=== PATIENT | female | born 1950 | race Caucasian/White ===

== ENCOUNTER 2019-01-03 09:20 | Inpatient (IN) ==
[2019-01-03] MEDS ORDERED: NS 1,000 ML IV ONE ×2 (09:54→10:54)
[2019-01-03] MEDS ORDERED: HUMULIN R IV ONE ×2 (09:54→11:04)
--- NOTE | 2019-01-03 09:58 | PROVIDER DOCUMENTATION ---
HPI-General Adult - General Chief Complaint: High Blood Sugar Stated Complaint: HIGH BLOOD SUGAR Time Seen by Provider: 01/03/19 09:39 Source: patient Allergies/Adverse Reactions: Patient Allergies Allergy/AdvReac Type Severity Reaction Status Date / Time adhesive tape Allergy Unknown Unknown Verified 03/09/17 13:52 aripiprazole [From Abilify] Allergy Unknown Unknown Verified 03/09/17 13:52 benztropine [From Cogentin] Allergy Unknown Unknown Verified 03/09/17 13:52 divalproex sodium Allergy Unknown Unknown Verified 03/09/17 13:52 [From Depakote] erythromycin base Allergy Unknown Unknown Verified 03/09/17 13:52 lithium Allergy Unknown Unknown Verified 03/09/17 13:52 morphine Allergy Unknown Unknown Verified 03/09/17 13:52 oxytetracycline Allergy Unknown Unknown Verified 03/09/17 13:52 [From Terramycin] promethazine [From Phenergan] Allergy Unknown Unknown Verified 03/09/17 13:52 pseudoephedrine Allergy Unknown Unknown Verified 03/09/17 13:52 [From Sudafed] Sulfa (Sulfonamide Allergy Unknown Unknown Verified 03/09/17 13:52 Antibiotics) talc Allergy Unknown Unknown Verified 03/09/17 13:52 triprolidine [From Actifed] Allergy Unknown Unknown Verified 03/09/17 13:52 venlafaxine [From Effexor] Allergy Unknown Unknown Verified 03/09/17 13:52 diclofenac [From Voltaren] Allergy Unknown Verified 12/22/18 14:35 ibuprofen Allergy Unknown Verified 12/22/18 14:35 oxycodone [From OxyContin] Allergy Unknown Verified 12/22/18 14:35 rizatriptan [From Maxalt] Allergy Unknown Verified 12/22/18 14:35 heather pacheco moisturizer Allergy Unknown Uncoded 01/03/19 11:20 seasoning for corned beef Allergy ANAPHYLAXIS Uncoded 01/03/19 11:20 Home Medications: Home Medication List Medication Instructions Recorded Confirmed Last Taken Type Aspirin 81 mg PO BID 03/09/17 10/17/17 1 Day Ago History ~10/16/17 Cholecalciferol (Vitamin D3) 4,000 unit PO QHS 03/09/17 10/17/17 10/16/17 History [Vitamin D3] Clomipramine HCl [Anafranil] 75 mg PO BID 03/09/17 10/17/17 10/16/17 History Estrogen/Methyltestosterone 1 each PO DAILY 03/09/17 10/17/17 10/16/17 History [Estratest] Levomilnacipran HCl [Fetzima] 120 mg PO DAILY 03/09/17 10/17/17 10/16/17 History Levothyroxine [Synthroid] 110 microgm PO DAILY 03/09/17 10/17/17 10/16/17 History Lubiprostone [Amitiza] 24 microgm PO BID 03/09/17 10/17/17 10/16/17 History Propranolol [Inderal] 20 mg PO TID 03/09/17 10/17/17 10/16/17 History Quetiapine Fumarate [Seroquel] 50 mg PO QAM 03/09/17 10/17/17 10/16/17 History Quetiapine Fumarate [Seroquel] 100 mg PO QHS 03/09/17 10/17/17 10/16/17 History Triamterene/Hydrochlorothiazid 1 each PO DAILY 03/09/17 10/17/17 10/16/17 History [Triamterene-Hctz 75-50 mg Tab] Vitamin B Complex [B Complex] 1 each PO DAILY 03/09/17 10/17/17 10/16/17 History Epinephrine Auto Injector [Epipen] 0.3 mg IM DIRECTED PRN PRN #1 01/02/19 Unknown Rx [email or web address] Prednisone 40 mg PO DAILY #8 tab 01/02/19 Unknown Rx - History of Present Illness -Gen Adult Nature of Presenting Problems: Pt. is 68 yof that presents with c/o elevated Blood sugar. Pt. is DM and last night received a steroid shot for an allergic reaction. She reports today her meter is reading >500. Pt. reports increased thirst and urination but denies ever being in DKA. Location of Pain/Injury: reports: none. denies: head, face, mouth, neck, chest, upper extremity, hand(s), abdomen, back, pelvis, genitalia, lower extremity, feet, upper body, lower body, generalized, other Pain Radiation: reports: no radiation. denies: arm(s), back, buttocks, chest, epigastric, feet, groin, jaw, flank (L), legs (lower), LLQ, LUQ, neck, periumbilical, flank (R), RLQ, RUQ, shoulder(s), scapula, scrotal, sternal notch, suprapubic, legs (upper), urethral, vaginal, other Quality of Pain: reports: none. denies: aching, indigestion, throbbing Severity: reports: moderate. denies: mild, severe Onset/Duration: reports: unsure, gradual Timing: reports: still present. denies: improving, intermittent, getting worse Context/Activities at Onset: reports: none. denies: light activity, moderate a ctivity, vigorous activity, recent emotional stress, recent physical stress, recent trauma history, possible bad food, cold exposure, eating, out of country travel, rest, sleep, sexual activity, other Modifying Factors: improves with: nothing Associated Symptoms: reports: denies symptoms. denies: anxiety, arm pain, back/neck pain, chest pain, constipation, cough, diaphoresis, diarrhea, dizziness, EENT symptoms, fatigue, fever/chills, genitourinary problems, headaches, heartburn, joint pain, loss of appetite, malaise, muscle aches, sinus congestion/drainage, nausea, rash, seizure, shortness of breath, sensory/motor loss, pain with inspiration, swelling/mass in abdomen, syncope, vomiting, weakness, trouble walking, other Similar Symptoms Previously?: Yes Recently seen or treated by another doctor?: Yes - Diabetes Related Context Context: reports: high blood sugar Review of Systems - Adult - REVIEW OF SYSTEMS - ADULT Constitutional: reports: no symptoms reported Eyes: reports: no symptoms reported Ears, Nose, Mouth & Throat: reports: no symptoms reported Cardiovascular: reports: no symptoms reported Respiratory: reports: no symptoms reported Gastrointestinal: reports: no symptoms reported Genitourinary: reports: no symptoms reported Musculoskeletal: reports: no symptoms reported Integumentary: reports: no symptoms reported Neurological: reports: no symptoms reported Psychiatric: reports: no symptoms reported Endocrine: reports: see HPI, increased thirst, polyuria. denies: change in skin pigment, cold intolerance, heat intolerance Past History - Adult - PAST MEDICAL HISTORY-ADULT Review of Records: reports: Old Records Reviewed, Nursing Assessment Review, Medications Reviewed, Social history reviewed & non-contributory. Major Childhood Illnesses: reports: denies history Cardiovascular: reports: denies history Respiratory: reports: sleep apnea Gastrointestinal: reports: denies history Obstetrical/Gynecological: reports: denies history Genitourinary: reports: denies history Musculoskeletal: reports: denies history Neurological: reports: denies history Psychiatric: reports: denies history Endocrine/Immune: reports: denies history Other Conditions: reports: denies history - PRIOR SURGERIES/PROCEDURES Surgical/Procedure History: reports: reviewed, not pertinent - IMMUNIZATION STATUS Childhood Immunizations: See Nurse Assessment Flu Vaccine: See Nurse Assessment - FAMILY HISTORY Family History: reviewed, not pertinent - SOCIAL HISTORY Smoking: denies Physical Exam-General - PHYSICAL EXAM-ADULT Initial Vital Signs Reviewed: Yes - CONSTITUTIONAL General Appearance: alert, mild distress, thin. negative: anxious, obtunded, combative - EYES Eyes: PERRL/EOMI, pink conjunctivae - HEAD, EARS, NOSE, MOUTH & THROAT HENMT: normocephalic/atraumatic, moist mucous membranes - NECK Neck: non-tender, full range of motion, supple, normal inspection - RESPIRATORY Respiratory: lungs clear, normal breath sounds - CARDIOVASCULAR Cardiovascular: normal peripheral pulses, regular rate, rhythm, no edema - GASTROINTESTINAL (ABDOMEN) Abdominal Exam: normal bowel sounds, non tender, soft - LYMPHATIC Lymphatic: no adenopathy - MUSCULOSKELETAL Back Exam: normal inspection, no CVA tenderness, no vertebral tenderness Extremity: normal range of motion, non-tender, normal gait, normal inspection Peripheral Pulses: radial (R): 2+, radial (L): 2+ - SKIN Integumentary: normal color, normal turgor, warm/dry - NEUROLOGIC Neurologic: grossly normal, no motor/sensory deficits - PSYCHIATRIC Psych/Mental Status: normal mood/affect, normal thought content, normal thought process, oriented x 3. negative: anxious, paranoid, tearful Progress - PLAN OF CARE/RESULTS Progress/Plan/Lab Results: Vital Signs - 8 hr 01/03/19 09:25 Temperature 97.8 F Pulse Rate 77 Respiratory Rate 18 Blood Pressure 178/80 O2 Sat by Pulse Oximetry 96 Laboratory Results - last 24 hr 01/03/19 09:42 POC Glucose 500 H Orders Category Date Time Status Saline Loc NOW Care 01/03/19 09:54 Ordered ABG [RESP] Stat Lab 01/03/19 09:54 Ordered ACETONE SERUM [CHEM] Stat Lab 01/03/19 09:54 Uncollected CBC WITH ELECTRONIC DIFF [HEME] Stat Lab 01/03/19 09:54 Uncollected COMPREHENSIVE METABOLIC PANEL [CHEM] Stat Lab 01/03/19 09:54 Uncollected TSH Stat Lab 01/03/19 09:54 Uncollected URINALYSIS W/POSS RFLX CULT [URINALYSIS] Stat Lab 01/03/19 09:54 Uncollected Insulin Human Regular [Humulin R] Med 01/03/19 09:54 Once 10 unit IV NOW ONE Ns 1000 ml IV Bolus X1 Med 01/03/19 09:54 Ordered 0.9% Sodium Chloride Inj [Ns] 1,000 ml IV 999 mls/hr Result Diagrams: 01/03/19 10:00 01/03/19 10:00 - EKG 1 Time of EKG reading by physician:: 11:23 EKG Read and Signed by:: Mauricio Galindo EKG Interpretation (*Must complete 3 of following elements*): Abnormal Rate: 75 Rhythm: Sinus with prolonged QT - CONSULTS/PCP/HOSPITALIST Notification #1 *Consult/PCP/Hospitalist*: Charity Mahajan Time Discussed: 11:30 Reason/Comments: Admission Consult Disposition: Will see in ED, Admit Departure - Departure Date of Disposition Decision: 01/03/19 Time of Disposition Decision: 11:06 DIAGNOSIS: Hyperthyroidism, Hyperglycemia Acute renal failure Qualifiers: Acute renal failure type: unspecified Qualified Code(s): N17.9 - Acute kidney failure, unspecified Disposition: ADMITTED INPATIENT 09 Certified Medical Emergency: Emergent Condition: Stable Referrals and Follow-Ups: Bronson Gregorio MD [Primary Care Provider] - - Critical Care Note This patient required my direct & personal management of CC.: No Attestation - Physician/ BRISA Attestation Patient care was provided by Advanced Practice Provider:: Yes Advanced Practice Provider:: Jazmyne Bills Advanced Practice Provider documentation review:: The Mid-level provider documentation, treatment plan and medical decision making was reviewed by the physician who agrees with all treatment and medical decision making by the MLP. The physician spent face to face time with patient:: No Advanced Practice Provider documentation review:: Supervising physician onsite and consulted in the evaluation and care of this patient. The physician did not have a face to face encounter with the patient.
[2019-01-03 10:22] LABS: URINE SOURCE CLEAN CATCH
[2019-01-03 10:24] LABS: HEMATOCRIT 33.4 % (37.0-47.0); HEMOGLOBIN 10.6 g/dL (12.0-16.0); LYMPH# 0.74 X1000 (1.2-3.4); LYMPH% 14.1 % (20.5-51.1); MCHC 31.7 g/dL (33-37); MCV 91.5 FL (81-99); MONO# 0.08 X1000 (0.11-0.59); MONO% 1.5 % (1.7-9.3); MPV 9.7 FL (7.4-10.4); NEUT# 4.42 X1000 (1.4-6.5); NEUT% 84.4 % (42.2-75.2); PLT 254 X1000 (130-400); RBC 3.65 XMIL (4.2-5.4); RDW 12.7 % (11.5-14.5); WBC 5.24 X1000 (4.8-10.8)
[2019-01-03 10:25] LABS: BILIRUBIN URINE NEGATIVE (NEGATIVE); BLOOD URINE SMALL (NEGATIVE); COLOR STRAW; GLUCOSE URINE >1000 mg/dL (NEGATIVE); KETONE URINE NEGATIVE (NEGATIVE); LEUKOCYTES URINE NEGATIVE (NEGATIVE); NITRITE URINE NEGATIVE (NEGATIVE); PH URINE 6.5; PROTEIN URINE 70 mg/dL (NEGATIVE); SP GRAVITY URINE 1.018; TURBIDITY URINE CLEAR (CLEAR); UROBILINOGEN URINE NORMAL (NORMAL)
[2019-01-03 10:26] LABS: UR EPITHELIAL CELLS <10 /HPF (<10); URINE BACTERIA 1+ /HPF; URINE RBC <10 /HPF (<10); URINE WBC <10 /HPF (<10)
[2019-01-03 10:29] LABS: ALLEN TEST YES; BE -0.1 mmoll (-3.0-3.0); BLOOD TYPE ARTERIAL; HCO3-(ACT) 24.8 mmoll (20.0-26.0); METHB 0.6 % (0.0-1.5); MODALITY ROOM AIR; O2(CT) 14.5 mL/dL (15.0-23.0); O2HB 95.9 % (95.0-99.0); PCO2(98.6) 44 mmHg (35-45); PO2(98.6) 81 mmHg (60-100); SAMPLE BLOOD; SAO2 97.6 % (95.0-100.0); THB 10.7 g/dL (11.5-17.4); pH(98.6) 7.37 (7.35-7.45)
[2019-01-03 10:35] LABS: ACETONE SERUM NEGATIVE (NEGATIVE)
[2019-01-03 10:45] LABS: AGAP 14; ALB/GLOB RATIO 1.1; ALKALINE PHOSPHATASE 93 U/L (32-104); BUN 41 mg/dL (8-22); CALCIUM 8.9 mg/dL (8.8-10.2); CHLORIDE 90 mmol/L (98-107); COSMO 295; CREATININE 3.5 mg/dL (0.5-0.9); ESTIMATED GFR 13; GLUCOSE 599 mg/dL (70-104); GOT 11 U/L (10-30); GPT 19 U/L (10-36); POTASSIUM 4.5 mmol/L (3.5-5.1); SODIUM 128 mmol/L (136-145); TCO2 24 mmol/L (25-35); TOTAL BILIRUBIN 0.21 mg/dL (0.20-1.00); TOTAL PROTEIN 7.5 g/dL (6.3-8.3)
[2019-01-03] MEDS ORDERED: ROBAXIN PO PRN (12:30)
[2019-01-03] MEDS ORDERED: ZOFRAN IV PRN (12:30)
[2019-01-03] MEDS ORDERED: FLEXERIL PO PRN (12:30)
[2019-01-03] MEDS ORDERED: EPIPEN IM PRN (12:30)
[2019-01-03] MEDS ORDERED: TYLENOL PO PRN (12:30)
[2019-01-03] MEDS ORDERED: MIRALAX PO PRN (12:30)
[2019-01-03] MEDS ORDERED: BENADRYL PO PRN (12:30)
[2019-01-03] MEDS ORDERED: MICRO-K PO PRN (12:30)
[2019-01-03] MEDS: HUMALOG SUBQ PRN ×2 (12:44→21:30)
--- NOTE | 2019-01-03 12:52 | Diag Imaging Result Doc PS360 ---
EXAM: CHEST-PORTABLE INDICATION: admit TECHNIQUE: One view COMPARISON: None. FINDINGS: There is mild elevation of the right hemidiaphragm. The lungs are grossly clear. There is no discrete pleural fluid collection or pneumothorax. The cardiomediastinal silhouette and central vasculature are grossly unremarkable accounting for magnification from AP technique. IMPRESSION: No evidence of acute pathology by plain radiograph. Electronically signed by Gaurang Calderon 01/03/2019 12:50 PM
--- NOTE | 2019-01-03 14:03 | HISTORY AND PHYSICAL ---
PRIMARY CARE PHYSICIAN: Dr. Bronson Gregorio. CHIEF COMPLAINT: Of an increased blood sugar after she had to use her EpiPen yesterday for an allergic reaction after eating at a restaurant. Also notes increased thirst and increased urination, has also noted weight loss over the past month. HISTORY OF PRESENTING ILLNESS: This is a 68-year-old female who presents to [facility] with complaints of an increased blood sugar, increased thirst, increased urination. States yesterday she had to give herself a shot with her EpiPen because she was eating at a restaurant and had an allergic reaction to some type of seasoning that they used in their food. She has also noted some weight loss over the past month. When she arrived to the emergency room her blood sugar was 599. Sodium was 128, BUN was 41 with a creatinine of 3.5, her anion gap was 14, her TSH was 0.05, her acetone level was negative, her ABG was all within normal limits so she will be admitted for further evaluation and treatment. PAST MEDICAL HISTORY: Of sleep apnea, diabetes type 2, hypothyroidism, constipation, hypertension. PAST SURGICAL HISTORY: Of a tonsillectomy, a hysterectomy, bladder repair after it was nicked during the hysterectomy, a back surgery and appendectomy. FAMILY HISTORY: Her mom and sister both have diabetes. SOCIAL HISTORY: She currently lives with family. Denies any tobacco, alcohol or illicit drug use. ALLERGIES: To adhesive tape, Abilify, Cogentin, Depakote, erythromycin, lithium, morphine, tetracycline, promethazine, pseudoephedrine, sulfa, talc, triprolidine, venlafaxine, diclofenac, ibuprofen, oxycodone, Maxalt, Paty K moisturizer and seasoning for corned beef. HOME MEDICATIONS: She takes aspirin 81 mg p.o. b.i.d., vitamin D3 4000 units p.o. at bedtime, Anafranil 75 mg p.o. b.i.d., Flexeril 10 mg p.o. p.r.n., Benadryl 25 mg p.o. p.r.n., Trulicity 0.75 mg injection will be held, EpiPen IM as directed p.r.n. , Aimovig autoinjector 1 dose IM every month will be held, Estratest 1 p.o. daily, Lasix 40 mg p.o. p.r.n. will be held, Fetzima 120 mg p.o. daily, Synthroid 110 mcg p.o. daily will be held, Amitiza 24 mcg p.o. b.i.d., Robaxin 750 mg p.o. q.8 hours p.r.n., Zofran 4 mg sublingually p.r.n. will be held, MiraLAX 17 g p.o. p.r.n., potassium 10 mEq p.o. p.r.n., Mirapex 0.5 mg p.o. t.i.d., prednisone 40 mg p.o. daily, Inderal 20 mg p.o. t.i.d., Seroquel 50 mg p.o. q.a.m. and 100 mg p.o. at bedtime, triamterene/hydrochlorothiazide 75/50 p.o. daily will be held and vitamin B complex 1 p.o. daily. LABORATORY DATA: Showed a white blood cell count of 5.24, hemoglobin 10.6, hematocrit 33.4, platelets 254,00.0 ABG with a pH of 7.37, pCO2 of 44, PO2 81, bicarb 24.8 and this was on room air. Sodium 128, potassium 4.5, chloride 90, CO2 24, BUN of 41, creatinine 3.5, glucose was 599, TSH of 0.05. Urinalysis was negative, acetone level was negative. Chest x-ray is pending. REVIEW OF SYSTEMS: She denied any fever, chills, blurred vision, dizziness. She has had increased thirst, increased urination, is very anxious, has noted weight loss over the past month. Denied any chest pain, coughing, shortness of breath denied any abdominal pain, constipation, diarrhea, burning or hurting with urination. PHYSICAL EXAMINATION: Temperature 97.8 degrees, pulse 77, respirations 18, blood pressure 178/80, saturating 96% on room air. GENERAL: This is a 68-year-old female who is lying in the bed and answers questions appropriately. HEENT: Normocephalic, atraumatic. Normal ENT inspection. Oropharynx and nares are clear. Pupils are equal, round, reactive to light, accommodation. Extraocular movements are intact. NECK: Normal inspection, normal range of motion. LUNGS: Clear to auscultation bilaterally with equal lung expansion and chest wall movement. HEART: With regular rate and rhythm. No murmurs, rubs, or gallops. ABDOMEN: Soft, nontender, nondistended. Bowel sounds are present x4 quadrants. MUSCULOSKELETAL: She has 5/5 strength x4 extremities. NEUROLOGICAL: The cranial nerves 2-12 appear grossly intact. ASSESSMENT: 1. Hyperosmolar nonketotic diabetes type 2. 2. Acute kidney injury. 3. Hyperthyroidism in a hypothyroid patient secondary to Synthroid use. PLAN: She will be admitted to the PVC unit, placed on telemetry. Will do fingerstick blood sugars q.2 hours x2 then q.4 hours, place on moderate sliding scale, place on normal saline at 125 mL an hour. Continue home medications as previously identified. Will continue to hold any diuretics at this time and will hold her Trulicity. We will recheck a CBC, BMP in the a.m. Apply SCDs for DVT prophylaxis and further orders after seen by attending. Dictated by SARA Alexis for Norm Mahajan MD cc: MD Norm Dill MD [facility]
[2019-01-03] MEDS: INDERAL PO SCH ×2 (14:10→17:26)
[2019-01-03] MEDS: MIRAPEX PO SCH ×2 (14:10→17:26)
[2019-01-03] MEDS: NS 1,000 ML IV SCH (14:12)
--- NOTE | 2019-01-03 17:43 | EKG Report ---
Test Performed on : 01/03/2019 11:21:52 AM Test Reason : admit Blood Pressure : / mmHG Vent. Rate : 075 BPM Atrial Rate : 075 BPM P-R Int : 184 ms QRS Dur : 092 ms QT Int : 454 ms P-R-T Axes : 025 010 019 degrees QTc Int : 506 ms Normal sinus rhythm. Minimal voltage criteria for LVH, may be normal variant Prolonged QT Abnormal ECG No previous ECGs available Unconfirmed Result
[2019-01-03] MEDS: SEROQUEL PO SCH (21:27)
[2019-01-03] MEDS: ASPIRIN PO SCH (21:27)
[2019-01-03] MEDS: AMITIZA PO SCH (21:27)
[2019-01-03] MEDS: VITAMIN D PO SCH (21:28)
[2019-01-03] MEDS: ANAFRANIL PO SCH (21:28)
[2019-01-04] MEDS: HUMALOG SUBQ PRN (00:52)
[2019-01-04] MEDS: NS 1,000 ML IV SCH ×3 (00:52→21:19)
[2019-01-04] MEDS: SYNTHROID PO SCH (06:17)
[2019-01-04 07:22] LABS: BASO# 0.01 X1000 (0.0-0.2); BASO% 0.1 % (0.0-0.8); EOS# 0.03 X1000 (0.0-0.7); EOS% 0.4 % (0.0-10.0); HEMATOCRIT 30.1 % (37.0-47.0); HEMOGLOBIN 9.5 g/dL (12.0-16.0); LYMPH# 1.71 X1000 (1.2-3.4); MCH 28.9 PG (27-31); MCHC 31.6 g/dL (33-37); MCV 91.5 FL (81-99); MONO# 0.48 X1000 (0.11-0.59); MONO% 5.6 % (1.7-9.3); MPV 8.8 FL (7.4-10.4); NEUT# 6.32 X1000 (1.4-6.5); NEUT% 73.9 % (42.2-75.2); PLT 247 X1000 (130-400); RBC 3.29 XMIL (4.2-5.4); RDW 12.7 % (11.5-14.5); WBC 8.55 X1000 (4.8-10.8)
[2019-01-04 08:07] LABS: CREATININE 2.9 mg/dL (0.5-0.9); POTASSIUM 3.9 mmol/L (3.5-5.1)
[2019-01-04] MEDS: HUMALOG SUBQ SCH ×5 (08:59→21:29)
[2019-01-04] MEDS ORDERED: ESTRATEST PO SCH (09:00)
[2019-01-04] MEDS ORDERED: PREDNISONE PO SCH (09:00)
[2019-01-04] MEDS: PATIENT'S OWN MED PO SCH (09:02)
[2019-01-04] MEDS: SEROQUEL PO SCH ×2 (09:02→21:20)
[2019-01-04] MEDS: ASPIRIN PO SCH ×2 (09:03→21:20)
[2019-01-04] MEDS: AMITIZA PO SCH ×2 (09:04→21:20)
[2019-01-04] MEDS: NEPHROCAPS PO SCH (09:04)
[2019-01-04] MEDS: ANAFRANIL PO SCH ×2 (09:05→21:19)
[2019-01-04] MEDS: MIRAPEX PO SCH ×3 (09:06→16:37)
[2019-01-04] MEDS: INDERAL PO SCH ×3 (09:06→16:37)
[2019-01-04] MEDS ORDERED: LANTUS INSULIN SUBQ SCH (13:45)
[2019-01-04] MEDS ORDERED: NON-FORMULARY MED (Dulaglutide [Trulicity] 1 DOSE) SUBQ ONE (15:45)
--- NOTE | 2019-01-04 17:04 | PROGRESS NOTE ---
DATE: 01/04/2019 SUBJECTIVE: The patient has no major complaints. Her blood sugars are much improved. She looks much brighter today. OBJECTIVE: Vital signs: Blood pressure 126/52, heart rate 72, respiratory rate of 28, temperature was 99 degrees. Cardiovascular: Regular rate and rhythm. Pulmonary: Bilateral breath sounds. Clear to auscultation. GI: Soft, nontender, nondistended. Bowel sounds are positive. LABORATORY DATA: White count is 8, hemoglobin and hematocrit 9 and 30, platelets of 247,000. BUN and creatinine are down to 35 and 2.9. Her baseline, I think, kidney function is fairly normal. Creatinine last one is 2018 and was 1.1, so I think she has had an acute injury. But her glucoses, the nurse illustrated to me some glucoses today that I do not have access to that are normal, like 70s and 80s. PROBLEM LIST: 1. Acute kidney injury, may be multifactorial. She is on Lasix and a Hyzaar combination, thiazide diuretics, so multiple things that are potentially nephrotoxic. I think Dr. Gregorio though was preparing for a Nephrology referral already. The patient has concerns about needing a renal biopsy prior to discharge which with her kidney function improving, I think is unlikely. Her urine electrolytes would suggest normal or nonspecific really, unfortunately, but we did get all of the tests that I requested. In any case, I will get a Nephrology opinion. I do not think the patient needs a biopsy at this time. I am not quite sure why the patient is on prednisone. I guess just because of an allergic reaction. I am going to hold her prednisone though. 2. Hyperglycemia. Again, not very well controlled. Sugars are better. I was going to reinstitute Lantus based on her previous sugars but today they are better. I am going to resume her Trulicity which apparently is safe to use in this setting and we will continue to follow. Her GFR is still low but I am hopeful that this will turn around. 3. Disposition. I anticipate if kidney function is below 2 and sugars are stable she should be able to go home tomorrow or the next day, pending, of course, Nephrology evaluation. cc: Norm Mahajan MD
[2019-01-04 18:53] LABS: UR CREAT RANDOM 20.6 mg/dL (11-20)
[2019-01-04] MEDS: VITAMIN D PO SCH (21:20)
[2019-01-05] MEDS: HUMALOG SUBQ SCH ×3 (01:38→08:08)
[2019-01-05] MEDS: NS 1,000 ML IV SCH (05:09)
[2019-01-05] MEDS: SYNTHROID PO SCH (06:26)
[2019-01-05 07:29] LABS: EOS# 0.01 X1000 (0.0-0.7); EOS% 0.1 % (0.0-10.0); HEMATOCRIT 28.6 % (37.0-47.0); HEMOGLOBIN 9.2 g/dL (12.0-16.0); LYMPH# 1.82 X1000 (1.2-3.4); LYMPH% 23.7 % (20.5-51.1); MCH 29.4 PG (27-31); MCHC 32.2 g/dL (33-37); MCV 91.4 FL (81-99); MONO# 0.56 X1000 (0.11-0.59); MONO% 7.3 % (1.7-9.3); MPV 9.6 FL (7.4-10.4); NEUT# 5.29 X1000 (1.4-6.5); NEUT% 68.9 % (42.2-75.2); PLT 248 X1000 (130-400); RBC 3.13 XMIL (4.2-5.4); RDW 12.9 % (11.5-14.5); WBC 7.68 X1000 (4.8-10.8)
[2019-01-05 07:37] LABS: CALCIUM 8.1 mg/dL (8.8-10.2); CREATININE 2.8 mg/dL (0.5-0.9); POTASSIUM 3.7 mmol/L (3.5-5.1)
[2019-01-05] MEDS: ANAFRANIL PO SCH ×2 (08:13→21:47)
[2019-01-05] MEDS: NEPHROCAPS PO SCH (08:14)
[2019-01-05] MEDS: SEROQUEL PO SCH ×2 (08:14→21:48)
[2019-01-05] MEDS: AMITIZA PO SCH ×2 (08:14→21:47)
[2019-01-05] MEDS: INDERAL PO SCH ×3 (08:15→16:33)
[2019-01-05] MEDS: MIRAPEX PO SCH ×3 (08:15→16:33)
[2019-01-05] MEDS: ASPIRIN PO SCH ×2 (08:15→21:48)
[2019-01-05] MEDS ORDERED: NS 1,000 ML IV SCH (10:15)
[2019-01-05] MEDS: PATIENT'S OWN MED PO SCH (12:34)
[2019-01-05] MEDS ORDERED: NORVASC PO SCH (14:00)
--- NOTE | 2019-01-05 14:16 | PROGRESS NOTE ---
DATE: 01/05/2019 SUBJECTIVE: The patient has no complaints. She looks well. OBJECTIVE: Blood pressure is not controlled or at least was not this morning, 160/65, heart rate 68, respiratory rate 18, temperature 97.8 degrees, 94% on room air.Cardiovascular: Regular rate and rhythm. Pulmonary: Bilateral breath sounds clear to auscultation. GI: Soft, nontender, nondistended. Bowel sounds are positive. LABORATORY DATA: Her white count is 7, hemoglobin and hematocrit 9 and 28, platelets 248,000, creatinine of 2.8. Per Dr. Gregorio, her creatinine recently was right above 3. PROBLEM LIST: 1. Acute on chronic renal failure. Her ultrasound shows chronic renal disease. I think this may be her new baseline. Nephrology has been consulted. I do not see a note today. I think they did stop IV fluids. It is unclear at this point if she has a nephrotic range proteinuria. Her GFR suggests that she has stage IV disease, so we are going to continue to monitor unless there is any other improvement, but I anticipate discharge soon. She has had workup including renal ultrasound and urine electrolytes. I suspect that she has hypertensive and diabetic nephropathy, but we will see. 2. Hypertension, which is not well controlled. In fact, she is on propranolol, but I am not entirely convinced that she takes that for blood pressure. She is on Lasix as needed and she is supposed to be on Hyzaar. These things have been held because of her kidney dysfunction. I am going to start her on Norvasc at low dose and we will see how she does. cc: Norm Mahajan MD
--- NOTE | 2019-01-05 14:24 | NEPHROLOGY CONSULTATION ---
DATE: 01/05/2019 REASON FOR ADMISSION: Possible allergic reaction after eating at a restaurant and using EpiPen x2. REASON FOR CONSULTATION: Acute kidney injury. CONSULTING PHYSICIAN: Dr. Mahajan. HISTORY OF PRESENT ILLNESS: Ms García is a 68-year-old white female who is followed by Dr. Bronson Gregorio. States that she has a past medical history of diabetes type 2, hypertension, hypothyroidism, and sleep apnea. She states that she has never been told she has had renal disease. She states that she was eating dinner on Friday afternoon at a restaurant with her granddaughter, had taken a bite of the soup after being reassured that there were no spices in it. The patient felt her throat constrict. She had an EpiPen in her purse. She proceeded to give herself an injection. The patient did not feel any better after 5 to 10 minutes, went out to her car, gave herself another EpiPen injection. Due to not feeling well, her granddaughter drove her to [facility] Emergency Department. During that initial evaluation, she had increased blood sugar, her blood pressure was elevated, she had complaints of increased thirst, increased urination. States that she has had weight loss in the last month. Denied chest pain. Denied any dizziness. During evaluation, it was found that her blood sugar in the emergency room was 599 with a sodium of 128. Her BUN was 41 and creatinine of 3.5. TSH was 0.05. Anion gap of 14. Acetone was negative. ABGs were actually within normal limits. The patient was admitted for further monitoring and evaluation. Noted that she had a normal creatinine of 1.1 in June 2017. No complaints of swelling. No complaints of chest pain. No increased work of breathing. She has improved in her throat constriction. No nausea, vomiting. No diarrhea. No fever, chills. PAST MEDICAL HISTORY: Sleep apnea, diabetes mellitus type 2, hypertension, hypothyroidism, constipation. She does have chronic neck pain that she wears a neck brace for sleeping. The patient has diabetic neuropathy to her feet. PAST SURGICAL HISTORY: Tonsillectomy, hysterectomy, bladder repair after nicking after hysterectomy, back surgery, and appendectomy. FAMILY HISTORY: Her mother and father both have diabetes. Mother had kidney disease, unknown cause. SOCIAL HISTORY: She lives with family. Denies tobacco, alcohol or illicit drug use. ALLERGIES: Are extensive, listing adhesive tape, Abilify, Cogentin, Depakote, erythromycin, lithium, morphine, tetracyclines, promethazine, pseudoephedrine, sulfa, talcum powder, diclofenac, ibuprofen, oxycodone, Maxalt, Windy moisturizer and seasoning for corned beef or soups or meats. HOME MEDICATIONS: Have been evaluated. She is on aspirin, vitamin D3, Anafranil, Flexeril, Benadryl, Trulicity, EpiPen, Aimovig autoinjector, Estratest, Lasix, Fetzima, potassium chloride, Mirapex, MiraLAX, Zofran sublingual, prednisone, Inderal, Seroquel, triamterene/hydrochlorothiazide, and vitamin B complex. REVIEW OF SYSTEMS: Times 10 with pertinent positives listed above in the HPI. VITAL SIGNS: The patient's most recent vital signs this a.m. when seen at 06:45, temperature 97.4 degrees, blood pressure 168/61, heart rate 65, respirations 16. She is on room air, last recorded saturation 97%. She has had 1360 in, 3450 out to void. LABORATORY DATA: Sodium 137, potassium 3.7, chloride 103, CO2 22, BUN 42, creatinine 2.5, glucose is 87, anion gap 12, calcium 8.1. White count 7.68, hemoglobin 9.2, hematocrit 28.6, with a platelet count of 248,000. PHYSICAL EXAMINATION: General: This is a 68-year-old white female resting quietly in bed. She appears chronically ill though no acute distress. Skin: Warm and dry. HEENT: Normocephalic, atraumatic. Conjunctiva is pale pink. She has YIFAN. Mucous membranes are dry. Neck: Supple. Trachea midline. She does have trace JVD. Cardiovascular: Regular rate and rhythm without gallop. Lungs: Clear to auscultation bilaterally. Equal excursion on room air. Abdomen: Soft, nontender. Positive bowel sounds. Genitourinary: Not inspected. Patient has been voiding, adequate amount documented. Extremities: Have no edema. No clubbing or cyanosis. Neurological: Alert and oriented x3. Able to move all extremities well. ASSESSMENT AND PLAN: 1. Acute kidney injury secondary to unknown cause. We will check urine electrolytes, a renal ultrasound if not completed. This may also be secondary to hyperosmolar nonketotic diabetes type 2. The patient is currently receiving normal saline at 125 mL an hour. We will stop this at this time. Her creatinine has improved down to 2.8 with a BUN down to 42. We will attempt to get previous labs from Dr. Gregorio's office over the last year. Continue to monitor intake and output and daily labs. 2. Electrolytes and acid-base balance. These are stable. 3. Anemia. This is low but stable. 4. Hyperosmolar nonketotic diabetes mellitus type 2, followed by the primary care. She did have negative acetone. I would like to thank you for allowing us to follow with this patient. Dictated by SARA Morgan for Jarad Villeda MD Face to face encounter, data reviewed, discussed with Lilliam Dawson on 01/05/19. I agree with the above assessment and plan of care. cc: SARA Morgan MD [facility]
[2019-01-05] MEDS: HUMULIN R SUBQ SCH ×2 (15:27→21:48)
[2019-01-05] MEDS ORDERED: ANTIVERT PO PRN (21:26)
[2019-01-05] MEDS: VITAMIN D PO SCH (21:48)
[2019-01-06] MEDS ORDERED: LOPRESSOR IV ONE (00:19)
--- NOTE | 2019-01-06 01:47 | EKG Report ---
Test Performed on : 01/06/2019 00:02:35 AM Test Reason : rhythm change Blood Pressure : / mmHG Vent. Rate : 113 BPM Atrial Rate : 117 BPM P-R Int : 000 ms QRS Dur : 080 ms QT Int : 334 ms P-R-T Axes : 000 068 017 degrees QTc Int : 458 ms Atrial fibrillation. with rapid ventricular response. Nonspecific ST abnormality Abnormal ECG When compared with ECG of 03-JAN-2019 11:21, (Unconfirmed) Atrial fibrillation. has replaced Sinus rhythm. Vent. rate has increased BY 38 BPM Questionable change in QRS axis Confirmed by Leisa WOO, Johnny Merino ([id number]) on 01/06/2019 8:32:53 AM
[2019-01-06] MEDS ORDERED: LANOXIN IV ONE (04:12)
[2019-01-06] MEDS ORDERED: CARDIZEM 125 MG/D5W 125 MG/125 ML IVPB IV SCH (04:30)
--- NOTE | 2019-01-06 05:14 | EKG Report ---
Test Performed on : 01/06/2019 03:46:14 AM Test Reason : converted back to SR Blood Pressure : / mmHG Vent. Rate : 133 BPM Atrial Rate : 266 BPM P-R Int : 000 ms QRS Dur : 080 ms QT Int : 322 ms P-R-T Axes : 217 074 -09 degrees QTc Int : 479 ms Atrial flutter. with 2:[address]. [address] abnormality Abnormal QRS-T angle, consider primary T wave abnormality Abnormal ECG When compared with ECG of 06-JAN-2019 00:02, (Unconfirmed) Atrial flutter. has replaced Atrial fibrillation. ST now depressed in Inferior leads Nonspecific T wave abnormality, worse in Inferior leads Confirmed by Leisa WOO, Johnny Merino ([id number]) on 01/06/2019 5:16:15 PM
[2019-01-06] MEDS: SYNTHROID PO SCH (06:21)
[2019-01-06 07:06] LABS: BASO# 0.01 X1000 (0.0-0.2); BASO% 0.1 % (0.0-0.8); EOS# 0.04 X1000 (0.0-0.7); EOS% 0.5 % (0.0-10.0); HEMATOCRIT 30.9 % (37.0-47.0); HEMOGLOBIN 10.1 g/dL (12.0-16.0); LYMPH# 1.54 X1000 (1.2-3.4); LYMPH% 19.9 % (20.5-51.1); MCH 29.4 PG (27-31); MCHC 32.7 g/dL (33-37); MCV 89.8 FL (81-99); MONO# 0.75 X1000 (0.11-0.59); MONO% 9.7 % (1.7-9.3); MPV 9.4 FL (7.4-10.4); NEUT# 5.38 X1000 (1.4-6.5); NEUT% 69.8 % (42.2-75.2); PLT 252 X1000 (130-400); RBC 3.44 XMIL (4.2-5.4); WBC 7.72 X1000 (4.8-10.8)
[2019-01-06 07:40] LABS: ALBUMIN 3.5 g/dL (3.5-5.0); CALCIUM 8.5 mg/dL (8.8-10.2); CREATININE 2.9 mg/dL (0.5-0.9); PHOSPHORUS 4.1 mg/dL (2.7-4.5); POTASSIUM 3.2 mmol/L (3.5-5.1)
[2019-01-06] MEDS: HUMULIN R SUBQ SCH ×4 (07:49→20:55)
[2019-01-06] MEDS ORDERED: KLOR-CON PO ONE (08:51)
[2019-01-06] MEDS ORDERED: LANOXIN IV SCH (09:00)
[2019-01-06] MEDS: ELIQUIS PO SCH ×2 (09:22→20:54)
[2019-01-06] MEDS: ASPIRIN PO SCH ×2 (09:23→20:55)
[2019-01-06] MEDS: MIRAPEX PO SCH ×3 (09:23→17:37)
[2019-01-06] MEDS: AMITIZA PO SCH ×2 (09:23→20:54)
[2019-01-06] MEDS: ANAFRANIL PO SCH ×2 (09:24→20:55)
[2019-01-06] MEDS: PATIENT'S OWN MED PO SCH (09:25)
[2019-01-06] MEDS: SEROQUEL PO SCH ×2 (09:25→20:55)
[2019-01-06] MEDS: NEPHROCAPS PO SCH (09:25)
[2019-01-06] MEDS ORDERED: CORDARONE 360 MG/D5W 360 MG/200 ML IV.SOLN IV ONE (11:46)
[2019-01-06] MEDS ORDERED: CORDARONE 150 MG/D5W 150 MG/100 ML IV.SOLN IV ONE (11:46)
[2019-01-06 11:54] LABS: URINE SOURCE CLEAN CATCH
[2019-01-06 11:57] LABS: BILIRUBIN URINE NEGATIVE (NEGATIVE); BLOOD URINE TRACE (NEGATIVE); COLOR YELLOW; GLUCOSE URINE TRACE mg/dL (NEGATIVE); KETONE URINE TRACE mg/dL (NEGATIVE); LEUKOCYTES URINE TRACE (NEGATIVE); NITRITE URINE NEGATIVE (NEGATIVE); PH URINE 5.5; PROTEIN URINE 100 mg/dL (NEGATIVE); SP GRAVITY URINE 1.009; TURBIDITY URINE CLEAR (CLEAR); UR EPITHELIAL CELLS <10 /HPF (<10); URINE BACTERIA 2+ /HPF; URINE RBC <10 /HPF (<10); URINE WBC <10 /HPF (<10); UROBILINOGEN URINE NORMAL (NORMAL)
[2019-01-06 12:11] LABS: UR PROT RANDOM 89.1 mg/dL
--- NOTE | 2019-01-06 13:09 | EKG Report ---
Test Performed on : 01/06/2019 12:38:06 PM Test Reason : rhythm change Blood Pressure : / mmHG Vent. Rate : 067 BPM Atrial Rate : 268 BPM P-R Int : 000 ms QRS Dur : 086 ms QT Int : 368 ms P-R-T Axes : 067 095 032 degrees QTc Int : 388 ms Atrial flutter. with 4:1 AV conduction. Rightward axis Junctional ST depression, probably normal Abnormal ECG When compared with ECG of 06-JAN-2019 03:46, (Unconfirmed) Vent. rate has decreased BY 66 BPM Confirmed by Leisa WOO, Johnny Merino ([id number]) on 01/06/2019 5:25:55 PM
--- NOTE | 2019-01-06 15:01 | PROGRESS NOTE ---
DATE: 01/06/2019 SUBJECTIVE: Patient has no major complaints. Overnight she developed atrial fibrillation with rapid ventricular response. OBJECTIVE: Blood pressure 132/55, heart rate of 68, respiratory rate 19, temperature degrees, 97% on room air.Cardiovascular: Regular rate and rhythm. Pulmonary: Bilateral breath sounds clear to auscultation. GI: Soft, nontender, nondistended. Bowel sounds are positive. LABORATORY DATA: White count 7.7, hemoglobin and hematocrit 10 and 30, platelets 252,000, potassium 3.2, creatinine 2.9. ASSESSMENT/PLAN: 1. Acute on chronic renal failure. At this point, I think she is at baseline. We have reordered another renal ultrasound. The patient had one on the which showed chronic renal disease, but we will get another ultrasound to see what has progressed in the last bit of time I guess. I think though she is at her baseline. Plan was initially to discharge her, but we will continue to follow. 2. Atrial fibrillation with rapid ventricular response. We will continue treatment. I have consulted cardiology. We have gotten an echo. She has been placed on Cardizem. Ultimate decision will be per cardiology. I do think she qualifies for anticoagulation. She is 68. She is female. She has hypertension. Once that is stabilized anticipate discharge soon, but at this point, it is a little bit up in the air until we know what her atrial fibrillation situation is. It looks like there is a possibility of cardioversion, so we will continue to follow. cc: Norm Mahajan MD
--- NOTE | 2019-01-06 15:09 | ECHO REPORT ---
ORDER DATE: 01/06/2019 INDICATION: Atrial fibrillation. FINDINGS: 1. The right atrium appears normal in size. 2. Mild tricuspid regurgitation. RV systolic pressure is 61 suggesting pulmonary hypertension. 3. Normal RV size and systolic function. 4. There is no significant pulmonic insufficiency. 5. Severe left atrial enlargement with a volume index of 48. 6. No mitral valve prolapse. Mild mitral regurgitation. No evidence of mitral stenosis. 7. Normal LV size, end-diastolic dimension of 4.3. Mild left ventricular hypertrophy with a posterior and interventricular septal wall thickness of 1.2 cm each. Normal LV systolic function. Estimated EF is 60% to 65% with normal wall motion. 8. Aortic valve opens well. It is trileaflet. Trace insufficiency. No stenosis. 9. Aorta appears normal in visualized segments. 10. No pericardial effusion identified. cc: MD Sujit Serrato CRNP
--- NOTE | 2019-01-06 16:11 | NEPHROLOGY PROGRESS NOTE ---
DATE: 01/06/2019 TIME SEEN: 0645. SUBJECTIVE: Ms. García is currently resting quietly in bed. She had an episode of new onset atrial fibrillation during the night. She remains on telemetry. She is currently on being monitored and is now on a Cardizem drip. She denies any chest pain or increased work of breathing. OBJECTIVE: Vital Signs: Temperature 98.1 degrees, blood pressure 130/83, heart rate 132, respirations are 25. She is on room air at 98% sat. She has had 1600 in, 1250 out to void. LABORATORY DATA: Sodium 135, potassium 3.2, chloride 99, CO2 23, BUN 43, creatinine 2.9, glucose 92. Her anion gap is 13. Her calcium is 8.5, phosphorus 4.1, albumin is 3.5. White count 7.72, hemoglobin 10.1, hematocrit 30.9 with a platelet count of 252,000. PHYSICAL EXAMINATION: General: This is a 68-year-old white female. She is currently resting in bed. She appears chronically ill in no acute distress. Skin: Warm and dry. HEENT: Normocephalic, atraumatic. Conjunctiva is pale. She has YIFAN. Mucous membranes are dry. Neck: Supple. Trachea midline. She does have positive JVD today. Cardiovascular: She has irregularly irregular rate and rhythm. She is tachycardic. No gallop auscultated today. Lungs: Clear to auscultation bilaterally. Equal excursion. Remains on O2. Abdomen: Soft, nontender, positive bowel sounds. Genitourinary: Not inspected. Adequate urine output documented. Extremities: Have 1+ lower extremity edema up into the midthigh area. Neurological: She is alert and oriented x3. ASSESSMENT AND PLAN: 1. Acute kidney injury to unknown cause on historical baseline of 1.3 to 1.6. The patient's renal ultrasound results not documented. Her BUN and creatinine are remaining stable. Adequate urine output is present. The patient has had a previous urine that was positive for proteinuria. We have discussed with the patient that if her BUN and creatinine remain stable and she continues with proteinuria that we may possibly need to do a renal biopsy down the road. Patient states understanding. Asymmetrical kidneys make biopsy higher risk. 2. Electrolytes and acid-base balance. The patient currently has potassium supplement ordered for potassium of 3.2. Acid-base balance is stable. 3. Anemia. This is close to target, hemoglobin of 10.1. 4. Diabetes mellitus with hyperglycemia. This is followed by the primary care. 5. I would like to thank you for allowing us to follow with this patient. Discussed with Dr. Bronson Gregorio. Normal renal function historically. She did have a recent CT with contrast and we do not have any data after the study to demonstrate that she did not have ELENA. 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 Overlying ATN from ELENA. rg Dictated by SARA Morgan for Jarad Villeda MD Face to face encounter, data reviewed, discussed with Lilliam Dawson on 01/06/19. I agree with the above assessment and plan of care. rg cc: SARA Morgan MD [facility]
[2019-01-06] MEDS ORDERED: CORDARONE 540 MG in D5W 289.2 ML IV ONE (17:46)
--- NOTE | 2019-01-06 18:28 | Diag Imaging Result Doc PS360 ---
EXAM: US RENAL 2 (RETROPER) COMPLETE 01/06/2019 HISTORY: elevated creatinine TECHNIQUE: Renal ultrasound COMMENT: The urinary bladder is unremarkable in appearance. The left kidney is very poorly demonstrated. It appears to be approximately 7.8 x 3.8 cm. The right kidney is without evidence of hydronephrosis and measures 11.7 x 4.4 x 5.3 cm. There are multiple cysts the largest is 1.6 cm in diameter. There are some questionable stones in the mid anterior calyx which appears to be distended. This appearance was not demonstrated on the previous examination of 12/30/2018. Otherwise there is no evidence of hydronephrosis. IMPRESSION: No evidence of obstructive uropathy. The possibility of right nephrolithiasis cannot be excluded. Electronically signed by Estevan Cano 01/06/2019 6:26 PM
[2019-01-06] MEDS: VITAMIN D PO SCH (20:54)
--- NOTE | 2019-01-06 22:03 | CONSULTATION ---
DATE OF CONSULTATION: 01/06/2019 IMPRESSION: 1. Acute episode of atrial flutter with 2 to 1 conduction (type 2 flutter) and atrial fibrillation following 2 doses of EpiPen for allergic reaction. No prior episodes of cardiac arrhythmias in the past or previous cardiac issues. 2. Acute on chronic renal dysfunction. 3. Type 2 diabetes mellitus. 4. Hypertension. 5. Obstructive sleep apnea. RECOMMENDATIONS: 1. Anticoagulate until sinus rhythm restored. 2. Attempt to restore sinus rhythm with amiodarone. If patient persists an atrial fibrillation or flutter would pursue DOMENICA cardioversion. HISTORY: This 68-year-old, white female with no prior cardiac history or arrhythmias was admitted with new atrial flutter/fibrillation. Cardiology was consulted. Patient has history of allergies to various foods. She was eating at a [place] restaurant here in the [facility] with her granddaughter. She felt her throat swelling and used an EpiPen. This did not seem to be helping, so she took a 2nd dose with another EpiPen. She then felt (juiced up) and started to feel better. However, she started developing tachycardia and had shortness of breath with this. She came to the emergency room for evaluation and was found to be in type 2 atrial flutter with rapid ventricular rate. She was started on intravenous Cardizem drip and was feeling better. As her heart rate came down she appeared to be in atrial fibrillation with controlled rate. She remains in atrial fibrillation. She denies any previous problems with cardiac arrhythmias or palpitations. She has had previous allergic reaction of similar nature at this very same [place] restaurant. When asked why she continues to eat there, she indicates that her granddaughter loves to eat there. PAST MEDICAL HISTORY: 1. Type 2 diabetes mellitus. 2. Hypertension. 3. Hypothyroidism. 4. Obstructive sleep apnea. 5. Chronic kidney disease. 6. History of food allergies and associated severe reactions. PAST SURGICAL HISTORY: Includes tonsillectomy, hysterectomy, bladder repair, unspecified back surgery and appendectomy. ALLERGIES: She has multiple allergies as listed. MEDICATIONS PRIOR TO ADMISSION: As listed. SOCIAL HISTORY: She is been for over 50 years. She lives at home. She does not smoke or use alcohol. FAMILY HISTORY: Negative for premature coronary disease. REVIEW OF SYSTEMS: Pulmonary: Noncontributory beyond history of present illness. Gastrointestinal: Noncontributory beyond history of present illness. Constitutional: Noncontributory beyond history of present illness. The remainder of the review of systems noncontributory beyond history of present illness with 14 total systems reviewed. PHYSICAL EXAMINATION: General: This is a pleasant, older white female in no distress. Vital signs: Blood pressure 140/67, heart rate 100 and irregular with ECG monitor showing atrial fibrillation. Oxygen saturation 99%. HEENT: Extraocular movements appear intact. Mucous membranes are moist. Neck: Supple without jugular venous distention. There are no carotid bruits. Chest: Clear to auscultation bilaterally. Cardiac Exam: Reveals an irregular rate and rhythm without appreciable murmur or gallop. Abdomen: Soft. Bowel sounds normal. Extremities: Without edema. Neurologic: Reveals her to be alert and fully oriented. Speech is fluent. She moves all 4 extremities equally well. Skin: Warm dry. Psychiatric: Reveals her mood to be appropriate. PERTINENT DATA: Twelve lead EKG, performed today demonstrates a type 2 atrial flutter with 4 to 1 AV conduction and a heart rate of 67 beats per minute rightward axis and nonspecific ST abnormality. LABORATORY DATA: Includes a white blood cell count of 7.72, hematocrit 30.9, hemoglobin 10.1, platelet count 252,000. Sodium 135, potassium 3.2, chloride 99, carbon dioxide 23, BUN 43, creatinine 2.9, glucose 92, TSH 0.05, free T4 1.32. cc: Juaquin Moe MD
[2019-01-07] MEDS: SYNTHROID PO SCH (06:22)
[2019-01-07] MEDS: HUMULIN R SUBQ SCH ×3 (06:42→16:39)
--- NOTE | 2019-01-07 07:25 | EKG Report ---
Test Performed on : 01/07/2019 07:06:02 AM Test Reason : afib Blood Pressure : / mmHG Vent. Rate : 079 BPM Atrial Rate : 271 BPM P-R Int : 000 ms QRS Dur : 082 ms QT Int : 388 ms P-R-T Axes : 148 011 011 degrees QTc Int : 444 ms Atrial flutter. with variable AV block. Nonspecific ST abnormality Abnormal ECG When compared with ECG of 06-JAN-2019 12:38, Questionable change in QRS axis (suspect limb lead reversal on previous EKG) QT has lengthened Confirmed by Leisa WOO, Johnny Merino ([id number]) on 01/07/2019 8:34:07 AM
--- NOTE | 2019-01-07 07:38 | PROGRESS NOTE ---
DATE: 01/07/2019 SUBJECTIVE: This is a 68-year-old who came in on 01/03/2019. She is a patient of Dr. Bronson Gregorio. She had increased blood sugar after she used her EpiPen the day before for an allergic reaction after eating at a restaurant. She had increased thirst and increased urination. She has also noted some weight loss over the last month, so presented to [facility] with complaints of increased blood sugar, increased thirst and increased urination. Gave herself a shot with EpiPen the day before, was eating at a restaurant and had an allergic reaction to some type of seasonings that they used in the food. She has also noticed a weight loss over the last month. When she arrived in the emergency room, blood sugar was 599, sodium 128, BUN 41, creatinine 3.5, anion gap was 14. TSH was 0.05. Acetone level was negative. Her ABGs were within normal limits. PAST MEDICAL HISTORY: 1. Diabetes mellitus type 2. 2. Hypothyroidism. 3. Constipation. 4. Hypertension. PAST SURGICAL HISTORY: Status post tonsillectomy, status post hysterectomy, bladder repair after I think it was injured during hysterectomy, back surgery and appendectomy listed. HOSPITAL COURSE: So admission diagnosis was hyperosmolar nonketotic diabetes with hyperglycemia and acute kidney injury and hypothyroidism and on Synthroid. The patient reports that she feels better. She was thinking maybe she gets to go home. She still has oxygen at 2 L. PHYSICAL EXAMINATION: Vital signs: She remains afebrile, temperature 98.5 degrees, pulse 84, respirations 20, blood pressure 136/77. HEENT: Pupils are equal and round. Lungs: Clear in all lung chavez. Cardiovascular: Regular rhythm and rate without murmur or S3. Urine output was 4200 mL. Blood sugars 96, 239, 139. ASSESSMENT AND PLAN: 1. She had an acute episode of atrial flutter, 2 to 1 conduction and fibrillation following 2 doses of her EpiPen for allergic reaction. No prior episodes of this arrhythmia in the past. 2. Acute on chronic renal dysfunction which is improving. Her creatinine is about where it was when she came in to the hospital and this may be her baseline. We have gotten a renal ultrasound and that was done on 01/06/2019, no evidence of obstructive uropathy, possibility of right nephrolithiasis could not be excluded. 3. Diabetes mellitus type 2. 4. Hypertension. 5. Obstructive sleep apnea. Cardiology has recommended we anticoagulate until sinus rhythm is restored and attempt to restore sinus rhythm with amiodarone. If the patient persist in atrial fibrillation and flutter, we will pursue transesophageal echo with cardioversion. She appears to still be in atrial fibrillation, rate is controlled. LABORATORY DATA: Review of electrolytes from yesterday, sodium 135, potassium 3.2, chloride 99, BUN 43, creatinine 2.9. Blood sugars have been 239, 210 and 139. REVIEW OF ORDERS: She is on vitamin D 4000 units at bedtime, Seroquel 100 mg at bedtime, Eliquis 2.5 mg b.i.d., aspirin 81 mg a day, synthroid 75 mg p.o. b.i.d. She is on Synthroid 75 mcg daily, Amitiza 24 mcg p.o. b.i.d., MiraLAX 17 g p.o. daily p.r.n., Mirapex 0.5 mg t.i.d., Seroquel 50 mg q.a.m. She is on amiodarone, she got 360 mg 1 dose on the 4th and then I think 150 mg was given IV as well. She is on digoxin 250 mg, she got, I believe, 1 dose of that yesterday, Lopressor p.r.n. rate. I do not think we have checked electrolytes today. We will check potassium and magnesium in particular and see if we need to supplement. She would like to go home but I think we need to see how her atrial fibrillation is doing and if she does not cardiovert, look at doing cardioversion. cc: Sanju Johnson MD MTD[facility]
[2019-01-07 07:42] LABS: BASO# 0.01 X1000 (0.0-0.2); BASO% 0.1 % (0.0-0.8); EOS% 1.4 % (0.0-10.0); HEMATOCRIT 33.3 % (37.0-47.0); HEMOGLOBIN 10.7 g/dL (12.0-16.0); LYMPH# 1.26 X1000 (1.2-3.4); LYMPH% 17.9 % (20.5-51.1); MCH 28.8 PG (27-31); MCHC 32.1 g/dL (33-37); MCV 89.5 FL (81-99); MONO# 0.47 X1000 (0.11-0.59); MONO% 6.7 % (1.7-9.3); MPV 9.4 FL (7.4-10.4); NEUT% 73.9 % (42.2-75.2); PLT 266 X1000 (130-400); RBC 3.72 XMIL (4.2-5.4); RDW 13.1 % (11.5-14.5); WBC 7.04 X1000 (4.8-10.8)
[2019-01-07 08:01] LABS: ALBUMIN 3.4 g/dL (3.5-5.0); CALCIUM 8.3 mg/dL (8.8-10.2); CREATININE 2.9 mg/dL (0.5-0.9); PHOSPHORUS 4.3 mg/dL (2.7-4.5); POTASSIUM 3.9 mmol/L (3.5-5.1)
[2019-01-07] MEDS: ELIQUIS PO SCH (11:30)
[2019-01-07] MEDS: SEROQUEL PO SCH (11:30)
[2019-01-07] MEDS: ASPIRIN PO SCH (11:30)
[2019-01-07] MEDS: ANAFRANIL PO SCH (11:30)
[2019-01-07] MEDS: AMITIZA PO SCH (11:30)
[2019-01-07] MEDS: MIRAPEX PO SCH ×3 (11:30→16:49)
[2019-01-07] MEDS: NEPHROCAPS PO SCH (11:31)
[2019-01-07] MEDS: PATIENT'S OWN MED PO SCH (11:34)
[2019-01-07] MEDS ORDERED: CORDARONE 540 MG in D5W 289.2 ML IV ONE (11:46)
--- NOTE | 2019-01-07 14:43 | EKG Report ---
Test Performed on : 01/07/2019 2:37:54 PM Test Reason : atrial flutter Blood Pressure : / mmHG Vent. Rate : 072 BPM Atrial Rate : 072 BPM P-R Int : 184 ms QRS Dur : 080 ms QT Int : 430 ms P-R-T Axes : 024 099 020 degrees QTc Int : 470 ms Normal sinus rhythm. Rightward axis Borderline ECG When compared with ECG of 07-JAN-2019 07:06, Sinus rhythm. has replaced Atrial flutter. Questionable change in QRS axis (suspectarm lead reversal Confirmed by Leisa WOO, Johnny Merino ([id number]) on 01/08/2019 6:07:40 AM
[2019-01-07 16:06] VITALS: BP 171/71
--- NOTE | 2019-01-07 17:56 | DISCHARGE SUMMARY ---
ADMISSION DATE: 01/03/2019 DISCHARGE DATE: 01/07/2019 HISTORY: This is a 68-year-old patient of Dr. Bronson Gregorio. She presented with complaint of increased blood sugar after she used her EpiPen the day before for an allergic reaction eating at a restaurant. She apparent was feeling upper respiratory symptoms and also noticed she had increased thirst, increased urination. This is a 68-year-old feel female who presented to [facility] with complaints of increased blood sugar, increased thirst, increased urination. States gave herself a shot with EpiPen because of an allergic reaction after eating a restaurant some type of seasoning. I think is it was at a [place] restaurant. This happen to her on 1 occasion before. She also noted some weight loss over the past month. When she arrived to the emergency room she had a blood sugar 599. Sodium was 128, BUN 41, and creatinine at 3.5. Anion gap was 14. TSH was 0.05. Acetone level negative. Her ABGs were within normal limits. PAST MEDICAL HISTORY: History of sleep apnea, history of diabetes mellitus type 2, hypothyroidism, constipation, hypertension. PAST SURGICAL HISTORY: 1. Status post tonsillectomy. 2. Hysterectomy. 3. Bladder repair after it was nan during a hysterectomy. 4. Back surgery. 5. Appendectomy. ADMISSION DIAGNOSES: 1. Hyperosmolar, nonketotic hyperglycemia. We adjusted insulin. Sugars seemed to come down nicely. Did not show any sign of acidosis. 2. Acute kidney injury which improved with fluid. 3. History of hyperthyroidism in a hypothyroid patient secondary to Synthroid use. 4. Nephrology was consulted for acute kidney injury, unknown cause. Continued to check electrolytes. They checked an ultrasound. There was no sign of urinary obstruction. Gave her some normal saline 125 mL an hour. Her creatinine improved down to 2.8, BUN down to 42. Electrolytes and acid-base balance were stable. Anemia noted but it was stable. 5. Had a cardiology consult. [place] acute episode of atrial flutter with 2:1 conduction, type 2 flutter, and atrial fibrillation following 2 doses of EpiPen due to allergic reaction. No prior episodes of cardiac arrhythmia. No past or previous cardiac episodes. So, I did put her on amiodarone for a time and this seemed to improve. Her rhythm remained stable. Decided not to put her on amiodarone, but we are going to keep her on Eliquis at 2.5 mg b.i.d. So felt she could be discharged on 01/07/2019. DISCHARGE MEDICATIONS: She will be on vitamin D3 4000 units at bedtime, Seroquel 100 mg at bedtime, Eliquis 2.5 mg b.i.d., aspirin 81 mg b.i.d., Anafranil 75 mg b.i.d., folic acid and vitamin B and C 1 a day, Synthroid 75 mcg a day, Amitiza 24 mcg p.o. b.i.d., Antivert 25 mg p.r.n., methocarbamol 750 mg p.o. q.8 hours p.r.n., MiraLAX 17 g daily p.r.n., Mirapex 0.5 mg t.i.d., Seroquel 50 mg q.a.m. Note that her lab on admission, creatinine was 2.9, otherwise unremarkable. This has resolved with fluids. Her baseline seems to be around 2.8 to 2.9. cc: Sanju Johnson MD
--- NOTE | 2019-01-07 19:23 | CARDIOLOGY PROGRESS NOTE ---
DATE: 01/07/2019 SUBJECTIVE: The patient continues asymptomatic from a cardiovascular standpoint. Since ECG this morning she has converted back to sinus rhythm. OBJECTIVE: Blood pressure 166/70, heart rate 71 and regular, with ECG monitor showing sinus rhythm. Oxygen saturation 98%. There is no significant jugular venous distention. Chest is clear to auscultation. Cardiac exam reveals a regular rate and rhythm without appreciable murmur or gallop. There is no evidence of peripheral edema. LABORATORY DATA: Includes a white blood cell count of 7.04, hematocrit 33.3, hemoglobin 10.7, platelet count 266,000. Sodium 137, potassium 3.9, chloride 100, carbon dioxide 21, BUN 46, creatinine 2.9, glucose 152. IMPRESSION: 1. Episode of atrial flutter with 2:1 atrioventricular conduction and some atrial fibrillation, precipitated following 2 doses of EpiPen for allergic reaction. The patient has converted back to sinus rhythm. She has no prior history of cardiac arrhythmias or previous cardiac issues. 2. Chronic renal dysfunction. 3. Type 2 diabetes mellitus. 4. Hypertension. 5. Obstructive sleep apnea. RECOMMENDATIONS: 1. Discontinue amiodarone and anticoagulation. 2. Continue to follow cardiac rhythm. Certainly should she have recurrent atrial fibrillation, anticoagulation long-term will need to be considered; however, it would appear that her recent atrial arrhythmias were provoked by 2 doses of EpiPen, and therefore catecholamine induced. cc: Juaquin Moe MD
--- NOTE | 2019-01-07 19:59 | NEPHROLOGY PROGRESS NOTE ---
DATE: 01/07/2019 SUBJECTIVE: Ms. García remains resting in bed. States that she is feeling much better. Hopes to go home. She continues on a Cardizem drip. Monitor at the bedside. OBJECTIVE: Temperature 98.5 degrees, blood pressure 136/77, heart rate 84, respirations 21. She is on 2 L nasal cannula. Last recorded saturation 99%. She has had 1582 in, 1100 out per urine. LABORATORIES: Sodium 137, potassium 3.9, chloride 100, CO2 21, BUN 46, creatinine 2.9, glucose 152. Her anion gap is 16. Calcium is 8.3, phosphorus 4.3, albumin 3.4, magnesium 1.6. White count 7.04, hemoglobin 10.7, hematocrit 33.3 with a platelet count of 266,000. PHYSICAL EXAMINATION: General: This is a 68-year-old white female resting quietly in bed. She appears chronically ill, in no acute distress. Skin: Warm and dry. HEENT: Normocephalic, atraumatic. Conjunctivae pale. She has YIFAN. Mucous membranes are dry. Neck: Supple. Trachea midline. No JVD. Cardiovascular: Irregularly irregular rate and rhythm. She appears atrial flutter on the monitor. Rate controlled. Lungs: Clear to auscultation bilaterally. Equal excursion on O2. Abdomen: Soft, nontender. Positive bowel sounds. Genitourinary: Not inspected. Adequate urine out. Extremities: Have no edema. No clubbing or cyanosis. Neurological: Alert and oriented x3. ASSESSMENT AND PLAN: 1. Acute kidney injury. We spoke to Dr. Gregorio. She had recently been in [facility], had a CT scan with contrast. Likely ATN from contrast overlying relatively well-preserved kidney function. The patient had a renal ultrasound indicating her left kidney measuring 7.8, right measuring 11.7. 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 We have discussed this with the patient. 2. Electrolytes and acid-base balance. These remain stable. 3. Anemia. This is close to target. PLAN: We have discussed the patient to follow up on discharge with her primary care and continue to monitor her labs. If indicated in the near future that she needs further follow-up, we have asked Dr. Gregorio to please refer her to our office. I would like to thank you for allowing us to follow with this patient. Dictated by SARA Morgan for Jarad Villeda MD Face to face encounter, data reviewed, discussed with Lilliam Dawson on 01/08/19. I agree with the above assessment and plan of care. cc: SARA Morgan MD [facility]
[2019-01-10] MEDS ORDERED: NON-FORMULARY MED (Dulaglutide [Trulicity] 1 DOSE) SUBQ SCH (09:00)
== END 2019-01-07 18:50 | disposition home or self-care (01) | DRG 638 ==
LOC: ED 09:20 → SUATTDRO 12:44 → 2N 12:44
PROVIDERS: ATTEND Emergency Medicine